=== PATIENT | male | born 1975 | race Caucasian/White ===

== ENCOUNTER 2019-09-30 17:37 | Emergency (ER) | payer SELFPAY ==
[2019-09-30 17:42] VITALS: BP 155/89; PULSE 110; RESP 16; TEMP 36.3; O2SAT 97; BMI 27.0
--- NOTE | 2019-09-30 17:48 | ED_ITS ---
HPI - Extremity Injury (Upper) General: Chief Complaint: Extremity Injury, Lower Stated Complaint: right hand injury Time Seen by Provider: 09/30/19 17:40 Source: patient Mode of arrival: ambulatory Limitations: no limitations History of Present Illness: HPI narrative: Patient is a 44-year-old male presents to ED today wanting evaluation following a crush injury to his right in dex finger. Patient states just prior to arrival he accidentally closed his finger in a car door. Patient states his last tetanus was approximately 12 years ago. complaint: injury to: right and finger Other Extremity Injury: Right: fingers Other injuries: none Place: home Severity: moderate Relieving factors: none Context: crush Associated symptoms: Reports no associated symptoms Review of Systems Musc: Reports: extremity pain (R finger) Skin/Breast: Reports: other (laceration) Neuro: Denies: numbness in extremities or sensory changes PFSH ED PFSH: Social History Smoking and tobacco status: current every day smoker Physical Exam Const: COMMON NORMALS: average body habitus, patient oriented x3, no limitations, healthy appearing, alert and well nourished GENERAL APPEARANCE: in distress (mild-in pain) Extremity: OTHER: pt has small 1cm non-gapping laceration to palmar pad of R index finger; bleeding controlled; pt states he does not want this sutured; no nail damage/no subungual hematoma; no significant swelling noted Neuro: COMMON NORMALS: patient oriented x3 SENSORIUM/ORIENTATION: Yes alert Skin: OTHER: see extremity assessement Course Vital Signs: Vital signs: Vital Signs Temperature 97.3 F L 09/30/19 17:42 Pulse Rate 110 H 09/30/19 17:42 Respiratory Rate 16 09/30/19 17:42 Blood Pressure 155/89 09/30/19 17:42 Pulse Oximetry 97 09/30/19 17:42 MDM - Extremity Injury (Upper) MDM Narrative: Medical decision making narrative: pts tetanus updated; wound copiously irrigated and dressed; again patient does not want laceration repaired-it is non-gapping and ultimately should heal fine; spoke about wound care at home and signs of infection to prompt repeat medical attention Imaging Data^: R index finger XR: My impression: no fractures/dislocations/fbs noted Discharge Plan Discharge Patient Disposition: Home, Self-Care Clinical Impression: Crushing injury of right index finger Qualifiers: Encounter type: initial encounter Qualified Code(s): S67.190A - Crushing injury of right index finger, initial encounter Laceration of right index finger Qualifiers: Encounter type: initial encounter Damage to nail status: without damage Foreign body presence: without foreign body Qualified Code(s): S61.210A - Laceration without foreign body of right index finger without damage to nail, initial encounter Condition: Stable Discharge Orders: Discharge Order (Routine); Ordered 09/30/19 Ordered By: Valorie Shepard Referrals: Israel Walsh MD [Primary Care Provider] - Discharge Diet: Usual diet Discharge Activity: Increase activity as tolerated Patient Instructions: Crush Injury, Finger Laceration (ED) Activity Restrictions/Additional Instructions: Keep wound clean with warm soap and water several times daily. Elevate and ice to help with swelling. May use tylenol/ibuprofen as needed for pain. Monitor for signs of infection such as redness, swelling, drainage, increased pain. Coding Level of Care Code ED Machine Operator Assistant for Hardeep Dejesus Exam Problem Focused
--- NOTE | 2019-09-30 17:48 | XRR_ITS ---
PROCEDURE INFORMATION: Exam: XR Right Finger(s) Exam date and time: 09/30/2019 5:54 PM Age: 44 years old Clinical indication: Injury or trauma; Injury history: Smashed finger in car door; Initial encounter; Crushing; Right; Index finger; Additional info: Trauma; Index finger. TECHNIQUE: Imaging protocol: XR Right fingers. Views: Minimum 2 views. COMPARISON: No relevant prior studies available. FINDINGS: Bones/joints: There is no acute fracture or dislocation. If symptoms persist, follow-up imaging in several days may be useful to exclude an occult fracture. No other significant acute bone or joint abnormality. Old/healed fracture/deformity of the right 4th metacarpal. Soft tissues: Mild soft tissue swelling involving the tip of the distal phalanx of the right index finger. XR/XR finger RT min 2V [id number] IMPRESSION: 1. No acute fracture or dislocation. 2. Other findings discussed above.
[2019-09-30] MEDS: tetanus-diphtheria tox (adult) 0.5 mL SDV IM (18:25)
== END 2019-09-30 18:30 | disposition home or self-care (01) ==
PROVIDERS: Emergency Provider Physician Assistant; PCP Family Medicine
DX: S67.190A Crushing injury of right index finger, initial encounter (principal); S61.210A Laceration without foreign body of right index finger without damage to nail, initial encounter; W23.0XXA Caught, crushed, jammed, or pinched between moving objects, initial encounter; F17.210 Nicotine dependence, cigarettes, uncomplicated; Z23 Encounter for immunization
CPT/HCPCS: 12345; 73140; 90471; 90714; 99281; 99283

== ENCOUNTER 2019-10-10 10:05 | Emergency (ER) | payer SELFPAY ==
[2019-10-10 10:13] VITALS: BP 136/99; PULSE 88; RESP 16; TEMP 36.8; O2SAT 98; BMI 26.4
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
[2019-10-10 10:28] VITALS: BP 136/99; PULSE 70; RESP 14; O2SAT 97
[2019-10-10] MEDS: HYDROcodone-acetaminophen 7.5-325 mg Tablet 1 TAB PO (10:33)
--- NOTE | 2019-10-11 15:37 | DCPLANNER ---
it application development manager had message to schedule a follow up appointment for patient with ENT, Dr. Vaughn. it application development manager faxed patients information to the ENT clinic, will call for appointment information.
--- NOTE | 2019-10-18 10:10 | DCPLANNER ---
Barbara from Dr. Singleton office called case management social worker, informing case management social worker that a follow up appointment was scheduled for Wednesday, November 10, 2019 at 3:45 and clinic called patient with appointment information.
--- NOTE | 2019-11-15 15:17 | DCPLANNER ---
Patients appointment scheduled for 11.10.[address] Vaughn was cancelled.
== END 2019-10-10 10:43 | disposition home or self-care (01) ==
PROVIDERS: Emergency Provider Physician Assistant; PCP Family Medicine
DX: K14.9 Disease of tongue, unspecified (principal); K14.6 Glossodynia; F17.210 Nicotine dependence, cigarettes, uncomplicated
CPT/HCPCS: 12345; 99281; 99283

== ENCOUNTER 2020-03-13 21:02 | Emergency (ER) | payer SELFPAY ==
[2020-03-13 21:05] VITALS: BP 135/98; PULSE 91; RESP 18; TEMP 36.7; O2SAT 98; BMI 26.4
--- NOTE | 2020-03-13 21:13 | XR_ITS ---
WS: [id number] Exam: XR tibia fibula LT 2V [id number] Date/Time of Exam: 03/13/2020 9:19 PM Reason For Exam: trauma No fracture or dislocation. Soft tissues are unremarkable. Mild degenerative changes at the knee. XR/XR tibia fibula LT 2V [id number] IMPRESSION: 1. No acute fracture identified.
--- NOTE | 2020-03-13 21:15 | W.ED.WOUNDLC ---
HPI - Wound/Laceration General: Chief Complaint: Wound/Laceration Stated Complaint: left leg injury Time Seen by Provider: 03/13/20 21:12 History of Present Illness: HPI narrative: Patient bumped his shins a concrete block 2 nights ago. Now it is red and swollen very tender has had hurt since the accident that is not up-to-date. Extremity Location: Left: lower leg Place: home Patient tetanus UTD: No Context: accidental Associated symptoms: Reports no associated symptoms; Denies chills, fever(s), nausea or vomiting Review of Systems Const: Denies: fever(s), chills or body aches Eyes: Denies: change in vision or blurry vision ENMT: Denies: throat pain or nasal congestion Card: Denies: chest pain or dyspnea on exertion Resp: Denies: dyspnea, productive cough or non-productive cough GI: Denies: abdominal pain, nausea or vomiting : Denies: difficulty urinating Musc: Reports: extremity pain (Erythema and drainage to the left hester is tender said started getting worse today.) Skin/Breast: Denies: rash Neuro: Denies: headache(s) Psych: Denies: anxiety or depression Paul/Lymph: Denies: easy bruising PFSH ED PFSH: Social History Smoking and tobacco status: current every day smoker Physical Exam Const: COMMON NORMALS: no acute distress, average body habitus and patient oriented x3 HENMT: COMMON NORMALS: normocephalic HEAD & SCALP: normal to inspection and normocephalic FACE & SINUS: normal facial exam Eye: COMMON NORMALS: conjunctivae normal GENERAL EYE: appearance normal, both eyes and all related structures CONJUNCTIVA: Yes conjunctivae normal Neck/C-Spine: COMMON NORMALS: no JVD Chest: COMMONS NORMALS: normal inspection of the chest Resp: COMMON NORMALS: normal respiratory effort and clear to auscultation bilaterally AUSCULTATION: clear to auscultation bilaterally Cardio: COMMON NORMALS: no JVD, regular rate and regular rhythm RATE: regular rate RHYTHM: regular rhythm GI: COMMON NORMALS: Normal to inspection, nondistended, normoactive bowel sounds present Extremity: COMMON NORMALS: normal to inspection and full ROM Neuro: COMMON NORMALS: patient oriented x3 Skin: NARRATIVE SKIN EXAM: Patient has couple open sores left hester where he bumped and concrete blockage red with erythema extending out inferior and superior the wound is approximately 2 inches slight yellowish drainage tibia tender to touch mid hester. Neurovascular intact distally. Course Vital Signs: Vital signs: Vital Signs Temperature 98.1 F 03/13/20 21:05 Pulse Rate 88 03/13/20 22:08 Respiratory Rate 18 03/13/20 22:08 Blood Pressure 130/98 03/13/20 22:08 Pulse Oximetry 98 03/13/20 22:08 Discharge Plan Discharge Patient Disposition: Home Clinical Impression: Cellulitis Qualifiers: Site of cellulitis: extremity Site of cellulitis of extremity: lower extremity Laterality: left Qualified Code(s): L03.116 - Cellulitis of left lower limb Condition: Stable Prescriptions: New Bactrim DS 800-160 mg tablet 1 tab PO BID 7 Days Qty: 14 RF: 0 tramadol 50 mg tablet 50 mg PO TID PRN (Reason: pain) Qty: 10 RF: 0 No Action aspirin 325 mg Tablet 325 - 650 mg PO PRN PRN (Reason: Pain) RF: 0 Discharge Orders: Discharge Order (Routine); Ordered 03/13/20 Ordered By: Aj Casey Referrals: Israel Walsh MD [Primary Care Provider] - Discharge Diet: Usual diet Discharge Activity: Increase activity as tolerated Patient Instructions: Cellulitis (ED) Activity Restrictions/Additional Instructions: Follow-up with medical provider as directed. Take medications as prescribed. Return to the ER or your medical provider if condition worsens. Please read and understand discharge instructions. If any questions ask please. Discharge Date/Time: 03/13/20 22:13 Coding Level of Care Code ED Medical Massage Therapist for Chg Fwd Exam Comprehensive
[2020-03-13] MEDS: tetanus-dipt-pertussis 0.5 mL SDV IM (21:20)
[2020-03-13] MEDS: TRAMadol 50 mg Tablet PO (21:25)
[2020-03-13] MEDS: sulfamethoxazole-trimeth DS 160-800 mg Tablet 1 TAB PO (21:25)
[2020-03-13 22:08] VITALS: BP 130/98; PULSE 88; RESP 18; O2SAT 98
--- NOTE | 2020-03-13 22:12 | PC.NURSE ---
This RN agrees with director financial services assessment
== END 2020-03-13 22:13 | disposition home or self-care (01) ==
PROVIDERS: Emergency Provider Nurse Practitioner Family; PCP Family Medicine
DX: L03.116 Cellulitis of left lower limb (principal); F17.210 Nicotine dependence, cigarettes, uncomplicated; Z23 Encounter for immunization
CPT/HCPCS: 12345; 73590; 90471; 90715; 99281; 99283

== ENCOUNTER 2020-05-03 20:37 | Emergency (ER) | payer SELFPAY ==
[2020-05-03] VITALS (8 sets, daily range): BP systolic 112–155; BP diastolic 71–89; PULSE 69–106; RESP 12–24; TEMP 36.7; O2SAT 93–98; BMI 27.0
--- NOTE | 2020-05-03 20:55 | USCV_ITS ---
Nicki Jiménez Age: 45 Gender: M : 1975 Exam Date: 05/03/2020 21:50 Ordering Phys: Erin Salinas DO Technologist: Antonio Ma [place] [facility] [place]: ? VEG BP: 128 / 72 HR: 78 Rhythm: Sinus Technical Quality: Good MEASUREMENTS (Male / Female) Normal Values 2D ECHO LV Diastolic Diameter PLAX 4.2 cm 4.2 - 5.9 / 3.9 - 5.3 cm LV Systolic Diameter PLAX 2.1 cm IVS Diastolic Thickness 0.8 cm 0.6 - 1.0 / 0.6 - 0.9 cm IVS Systolic Thickness 1.2 cm LVPW Diastolic Thickness 1.1 cm 0.6 - 1.0 / 0.6 - 0.9 cm LVPW Systolic Thickness 1.4 cm LVOT Diameter 2.1 cm LV Ejection Fraction 2D Teich 80.2 % LV Ejection Fraction MOD 2C 73.7 % LV Ejection Fraction 2C AL 73.2 % LA Diameter 3.2 cm LA Width 3.5 cm LA Height 5.0 cm RA Width 4.1 cm RA Height 4.7 cm Aorta at Sinotubular Diameter 2.9 cm M-MODE LV Diastolic Diameter MM 5.2 cm 4.2 - 5.9 / 3.9 - 5.3 cm LV Systolic Diameter MM 2.9 cm LV Ejection Fraction MM Teich 74.8 % IVS Diastolic Thickness MM 1.2 cm 0.6 - 1.0 / 0.6 - 0.9 cm IVS Systolic Thickness MM 1.3 cm LVPW Diastolic Thickness MM 1.2 cm 0.6 - 1.0 / 0.6 - 0.9 cm LVPW Systolic Thickness MM 1.8 cm RV Diastolic Diameter MM 1.3 cm Aortic Annulus Diameter 3.6 cm LA Ao Ratio MM 1.0 MV E Point Septal Separation 1.0 cm DOPPLER AV Peak Velocity 143.0 cm/s LVOT Peak Velocity 108.0 cm/s AV Area Cont Eq vti 2.7 cm squared AV Area Cont Eq pk 2.6 cm squared MV Area PHT 3.5 cm squared Mitral E to A Ratio 0.9 MV E' Velocity 39.0 cm/s Mitral E to MV E' Ratio 5.1 Mitral E to LV E' Lateral Ratio 4.9 Mitral E to LV E' Septal Ratio 5.4 TR Peak Velocity 263.0 cm/s TR Peak Gradient 27.7 mmHg TV Peak E Velocity 104.0 cm/s Right Atrial Pressure 3.0 mmHg Pulmonary Artery Systolic Pressu 30.7 mmHg PV Peak Velocity 121.0 cm/s FINDINGS Left Ventricle Normal left ventricular size, systolic function and wall thickness, with no regional wall motion abnormalities. Left ventricular ejection fraction is estimated at 65 %. Normal diastolic function. Right Ventricle Normal right ventricular size and systolic function. Right ventricular systolic pressure 30.7 mmHg. Right Atrium Normal right atrial size. Right atrial pressure estimated at 3 mm Hg. Left Atrium Normal left atrial size. Mitral Valve Structurally normal mitral valve. No mitral valve stenosis. Trace mitral valve regurgitation. Aortic Valve Structurally normal trileaflet aortic valve. No aortic valve stenosis. No aortic valve regurgitation. Tricuspid Valve Structurally normal tricuspid valve. No tricuspid valve stenosis. Trace tricuspid valve regurgitation. Pulmonic Valve Structurally normal pulmonic valve. No pulmonary valve stenosis. Trace pulmonary valve regurgitation. Pericardium No pericardial effusion. Normal sized inferior vena cava. Aorta Normal size aortic root and proximal ascending aorta. CONCLUSIONS 1. Normal left ventricular size, systolic function and wall thickness, with no regional wall motion abnormalities. Left ventricular ejection fraction is estimated at 65 %. Normal diastolic function. 2. Normal right ventricular size and systolic function. 3. No significant valvular abnormality. 4. No pericardial effusion. 5 No prior similar studies to compare. Anne Marie Gr MD (Electronically Signed) Final Date: 03 May 2020 22:45 S
--- NOTE | 2020-05-03 20:55 | XRR_ITS ---
PROCEDURE INFORMATION: Exam: XR Chest, 1 View Exam date and time: 05/03/2020 8:59 PM Age: 45 years old Clinical indication: Chest pain TECHNIQUE: Imaging protocol: XR of the chest Views: 1 view. COMPARISON: CR Chest 1 [place] [id number] 01/11/2015 3:28 PM FINDINGS: The lungs are clear of infiltrate. There are no pleural effusions or pneumothorax. The heart size and pulmonary vascularity are normal. XR/XR chest 1V portable [id number] IMPRESSION: No active disease.
--- NOTE | 2020-05-03 20:57 | ECG_ITS ---
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 Measurements Intervals [place] Rate: 89 P: 55 CT: 116 QRS: 68 QRSD: 90 T: 73 QT: 344 QTc: 420 Interpretive Statements SINUS RHYTHM WITH SHORT CT INTERVAL Compared to ECG 01/11/2015 15:06:[address] interval now present Electronically Signed On 05-04-2020 8:38:18 AGRICULTURAL ECONOMIST by Anne Marie Gr M.D. [email or web address] [email or web address] hospital.[email or web address]/[id number] f
--- NOTE | 2020-05-03 21:00 | PC.NURSE ---
Dr Salinas in to speak with pt withthis nurse present. Educated pt on plan of care and testing needed. Dr Salinas wanting to test pt for HIV and Hepatitis. Pt verbalizes understanding an agreeable
--- NOTE | 2020-05-03 21:10 | W.ED.CHESTPA ---
HPI - Chest Pain General: Chief Complaint: Chest Pain Stated Complaint: chest pains Time Seen by Provider: 05/03/20 20:49 Source: patient Mode of arrival: ambulatory Limitations: no limitations History of Present Illness: HPI narrative: Nicki is a very nice 45-year-old male who comes in complaining of chest discomfort. Patient states for the past year he has had intermittent discomfort in both of his axilla. For the past 2 to 3 days the pain has been more intense. Patient states today started having sharp shooting pain in the left side of his chest. He denies cough, fever, shortness of breath, diaphoresis, nausea or vomiting or other cardiac type complaint. Patient states he just aches and hurts all over. He denies any fevers or chills. He denies any unexplained weight loss. He denies any neck pain or back pain. Patient states that he has had similar symptoms for the past year things only become more intense just recently. Patient does admit to IV drug abuse which is been a long-term issue. Denies any knots or swellings in his arms. Patient admits to drinking, smoking using methamphetamines and opiates. He is not tried anything for this at home to make it better just notices that the pain is much more prominent today than normal. Associated symptoms: Deny abdominal pain, diaphoresis, dyspnea, fever(s), nausea, palpitations, syncope or vomiting Review of Systems Const: Denies: fever(s), chills, body aches, fatigue, malaise or diaphoresis Eyes: Denies: change in vision, blurry vision, photophobia, eye discomfort, eye discharge, eye redness or yellow eyes ENMT: Denies: throat pain, odynophagia, hoarseness, swelling of lips/tongue, ear or mastoid pain, ear discharge, change in hearing or nasal discharge Card: Reports: chest pain; Denies: palpitations, irregular heart rhythm, edema, lightheadedness, syncope, pre-syncope, dyspnea on exertion or orthopnea Resp: Denies: dyspnea, productive cough, non-productive cough, wheezing, hemoptysis or chest congestion GI: Denies: abdominal pain, nausea, vomiting, hematemesis, coffee ground emesis, heartburn, diarrhea, constipation, GI cramping, hematochezia or melena : Denies: flank pain, dysuria, urinary frequency, urinary urgency or hematuria Musc: Denies: neck pain, back pain, extremity pain, extremity swelling, joint pain, joint swelling, joint redness, joint warmth or joint stiffness Skin/Breast: Denies: rash, pruritus, erythema, skin pain or skin tenderness Neuro: Denies: headache(s), numbness in extremities, weakness in extremities, sensory changes, lack of coordination, difficulty walking, dizziness, vertigo, confusion, Slurred speech present or seizure-like activity Paul/Lymph: Denies: easy bruising, easy bleeding, petechiae, purpura or enlarged lymph nodes All/Imm: Denies: urticaria, throat swelling, tongue swelling, facial swelling or acute wheezing PFSH ED PFSH: Medical History (Updated 05/04/20 @ 05:20 by Erin Salians) Depression Social History Smoking and tobacco status: current every day smoker Physical Exam Const: COMMON NORMALS: no acute distress, patient oriented x3, no limitations and alert GENERAL APPEARANCE: cooperative HENMT: COMMON NORMALS: normocephalic, atraumatic, external ears normal, EAC's normal and Normal external nose present HEAD & SCALP: normal to inspection, normocephalic and atraumatic FACE & SINUS: normal facial exam and face symmetric NOSE: Normal external nose present and Normal nares present EXTERNAL EAR: Yes external ears normal EXTERNAL AUDITORY CANAL: EAC's normal MOUTH: Normal oral and palatal mucosa present, lip normal and tongue normal Eye: COMMON NORMALS: Equal, round and reactive pupils present and conjunctivae normal GENERAL EYE: appearance normal, both eyes and all related structures ALIGNMENT: Yes alignment normal PERIORBITAL: periorbital findings normal EYELID: eyelids normal CONJUNCTIVA: Yes conjunctivae normal SCLERA: sclerae normal PUPIL: Yes Equal, round and reactive pupils present Neck/C-Spine: COMMON NORMALS: full ROM, no lymphadenopathy, supple, no meningeal signs and no JVD GENERAL: Yes normal visual inspection and Yes trachea midline Chest: COMMONS NORMALS: normal inspection of the chest and normal palpation of entire chest wall Resp: COMMON NORMALS: normal respiratory effort, No retractions, No use of accessory muscles and clear to auscultation bilaterally EFFORT & INSPECTION: Yes able to speak in complete sentences and Yes symmetric chest movement AUSCULTATION: clear to auscultation bilaterally, no crackles, no rales, no rhonchi and no wheezes Cardio: COMMON NORMALS: no JVD, regular rate, regular rhythm, S1 normal heart sound present and S2 normal heart sound present RATE: regular rate RHYTHM: regular rhythm HEART SOUNDS: S1 normal heart sound present, S2 normal heart sound present, no click, no gallops, no murmurs and no rubs GI: COMMON NORMALS: Soft to palpation and No hepatosplenomegaly present PALPATION: Yes Soft to palpation, No Tenderness to palpation present (GI), No Guarding due to palpation present (GI), No Rigid due to palpation, Yes No hepatosplenomegaly present, No Hernia present, No Palpable mass present and No Pulsatile mass present : COMMON NORMALS: Yes no CVA tenderness BLADDER/KIDNEY EXAM: Yes no CVA tenderness Back/Pelvis: COMMON NORMALS: no CVA tenderness, thoracic and lumbar spine normal to inspection, no thoracic nor lumbar tenderness and thoraco-lumbar ROM normal Extremity: COMMON NORMALS: normal to inspection, full ROM, capillary refill normal, no joint enlargement, no clubbing, cyanosis or edema and no calf tenderness Neuro: COMMON NORMALS: patient oriented x3, CN's II-XII intact bilaterally, moves all extremities, no focal motor deficits and no sensory deficits noted SENSORIUM/ORIENTATION: Yes alert MENINGEAL SIGNS: Yes no meningeal signs SPEECH: speech normal Psych: COMMON NORMALS: mental status grossly normal, Normal thought process present, cooperative, normal affect, speech normal and activity/motor behavior normal SPEECH: Yes normal speech THOUGHT PROCESS: Normal thought process present Skin: COMMON NORMALS: no rashes or lesions noted, turgor normal, no jaundice, no petechiae and no mottling GENERAL SKIN EXAM: no rashes or lesions noted and turgor normal Course ED course: 2123 -patient was asked in the presence of nursing if get tested for HIV and hepatitis and he did consent. Vital Signs: Vital signs: Vital Signs Temperature 98.1 F 05/03/20 20:39 Pulse Rate 74 05/04/20 03:40 Respiratory Rate 18 05/04/20 03:40 Blood Pressure 115/84 05/04/20 03:40 Pulse Oximetry 95 05/04/20 03:40 MDM - Chest Pain MDM Narrative: Medical decision making narrative: 0216 -after multiple phone calls to other institutions the closest available facility that would accept the patient was [facility]. Case was reviewed with Dr. Hartley and Dr. Bradshaw who agreed to accept the patient in transfer. Patient has been covered with Protonix bolus and drip along with antibiotics. The concern is for the possible esophageal tear seen on CT. This time there is no evidence of other cause other than a mild nodular pneumonia in his right lung but clinically this does not fit. Echo was negative for evidence of endocarditis and there is no sign of PE. Patient agrees to transfer. Further care will be dictated at the [facility]. We will transfer the patient there by the fastest means possible. 0251 -patient will be transferred by ground as there are no air ambulance services flying by ground or fixed wing. Transfer him by ground life threat to [facility] this is the closest available facility. Lab Data: Attestation: I reviewed the patient's lab results. Labs: Lab Results 05/03/20 05/03/20 05/03/20 Range/Units 21:07 21:07 21:07 WBC 21.1 H (4.0-10.0) 10^3/ uL RBC 5.08 (4.1-5.3) 10^6/u L Hgb 14.9 (11.7-16.6) g/dL Hct 44.5 (42.0-52.0) % MCV 87.6 (80-94) fL MCH 29.3 (28.0-34.0) pg MCHC 33.5 (30.0-36.0) g/dL RDW 12.7 (12.1-15.1) % Plt Count 259 (130-400) 10^3/c mm MPV 9.8 (7.4-10.4) fL Neut % (Auto) 67.3 % Lymph % (Auto) 22.5 % [place] % (Auto) 8.8 % Eos % (Auto) 0.7 % Baso % (Auto) 0.3 % Neut # (Auto) 14.20 H (1.8-7.7) 10^3/u L Lymph # (Auto) 4.7 (0.8-4.8) 10^3/u L [place] # (Auto) 1.9 H (0.2-0.9) 10^3/u L Eos # (Auto) 0.1 (0.0-0.8) 10^3/u L Baso # (Auto) 0.1 (0.0-0.1) 10^3/u L Nucleated RBC % (a uto) 0 % Nucleated RBCs # 0.0 /100WBC D-Dimer 1.02 H (0-0.59) ug/mIFE U Sodium 137 (136-145) mmol/L Potassium 3.6 (3.5-5.1) mmol/L Chloride 102 (98-107) mmol/L Carbon Dioxide 25 (22-29) mmol/L Anion Gap 13.6 (5-19) BUN 12 (6-20) mg/dL Creatinine 0.8 (0.7-1.2) mg/dL GFR Calculation 104.1 (90-130) mL/min Glucose 135 H (65-115) mg/dL Calculated Osmolal ity 286 (285-295) mOsm/k g Lactic Acid (0.5-2.2) mmol/L Calcium 9.5 (8.5-10.5) mg/dL Magnesium 1.9 (1.7-2.3) mg/dL Total Bilirubin 0.5 (0.15-1.2) mg/dL AST 20 (0-40) U/L ALT 38 (0-41) U/L Alkaline Phosphata se 117 (40-130) IU/L Troponin T Baselin e (0-15) ng/L Troponin T 120 Min lumbee (0-15) ng/L Delta Troponin T (0-10) ABS# Total Protein 6.7 (6.6-8.7) g/dL Albumin 4.0 (3.5-5.2) g/dL Globulin 2.7 (1.3-4.6) g/dL Urine Color (Yellow) Urine Appearance (CLEAR) Urine pH (5-7) Ur Specific Gravit y (1.005-1.030) Urine Protein (Negative) Urine Glucose (UA) (Normal) Urine Ketones (Negative) Urine Blood (Negative) Urine Nitrate (Negative) Urine Bilirubin (Negative) Urine Urobilinogen (Negative) mg/dL Ur Leukocyte Carrie ase (Negative) Urine RBC (0-2) /hpf Urine WBC (0-5) /hpf Ur Squamous Epith Cells (0-5) /hpf Amorphous Sediment Urine Bacteria (NONE) /hpf Hepatitis A IgM Ab (Nonreactive) Hep Bs Antigen (Nonreactive) Hep Bs Antibody (0-8.5) Hep B Core Total A b (Nonreactive) Hepatitis C Antibo dy (Nonreactive) HIV 1&2 Ab & HIV 1 Ag (Non-Reactiv) HIV 1&2 Antibody (Non-Reactiv) SARS-CoV-2 Ag (Rap id) (Negative) 05/03/20 05/03/20 05/03/20 Range/Units 21:07 21:07 21:07 WBC (4.0-10.0) 10^3/ uL RBC (4.1-5.3) 10^6/u L Hgb (11.7-16.6) g/dL Hct (42.0-52.0) % MCV (80-94) fL MCH (28.0-34.0) pg MCHC (30.0-36.0) g/dL RDW (12.1-15.1) % Plt Count (130-400) 10^3/c mm MPV (7.4-10.4) fL Neut % (Auto) % Lymph % (Auto) % [place] % (Auto) % Eos % (Auto) % Baso % (Auto) % Neut # (Auto) (1.8-7.7) 10^3/u L Lymph # (Auto) (0.8-4.8) 10^3/u L [place] # (Auto) (0.2-0.9) 10^3/u L Eos # (Auto) (0.0-0.8) 10^3/u L Baso # (Auto) (0.0-0.1) 10^3/u L Nucleated RBC % (a uto) % Nucleated RBCs # /100WBC D-Dimer (0-0.59) ug/mIFE U Sodium (136-145) mmol/L Potassium (3.5-5.1) mmol/L Chloride (98-107) mmol/L Carbon Dioxide (22-29) mmol/L Anion Gap (5-19) BUN (6-20) mg/dL Creatinine (0.7-1.2) mg/dL GFR Calculation (90-130) mL/min Glucose (65-115) mg/dL Calculated Osmolal ity (285-295) mOsm/k g Lactic Acid 1.3 (0.5-2.2) mmol/L Calcium (8.5-10.5) mg/dL Magnesium (1.7-2.3) mg/dL Total Bilirubin (0.15-1.2) mg/dL AST (0-40) U/L ALT (0-41) U/L Alkaline Phosphata se (40-130) IU/L Troponin T Baselin e 6 (0-15) ng/L Troponin T 120 Min lumbee (0-15) ng/L Delta Troponin T (0-10) ABS# Total Protein (6.6-8.7) g/dL Albumin (3.5-5.2) g/dL Globulin (1.3-4.6) g/dL Urine Color (Yellow) Urine Appearance (CLEAR) Urine pH (5-7) Ur Specific Gravit y (1.005-1.030) Urine Protein (Negative) Urine Glucose (UA) (Normal) Urine Ketones (Negative) Urine Blood (Negative) Urine Nitrate (Negative) Urine Bilirubin (Negative) Urine Urobilinogen (Negative) mg/dL Ur Leukocyte Carrie ase (Negative) Urine RBC (0-2) /hpf Urine WBC (0-5) /hpf Ur Squamous Epith Cells (0-5) /hpf Amorphous Sediment Urine Bacteria (NONE) /hpf Hepatitis A IgM Ab Non-reactive (Nonreactive) Hep Bs Antigen Non-reactive (Nonreactive) Hep Bs Antibody 3.8 (0-8.5) Hep B Core Total A b Non-reactive (Nonreactive) Hepatitis C Antibo dy Reactive H (Nonreactive) HIV 1&2 Ab & HIV 1 Ag (Non-Reactiv) HIV 1&2 Antibody (Non-Reactiv) SARS-CoV-2 Ag (Rap id) (Negative) 05/03/20 05/03/20 05/03/20 Range/Units 21:07 22:50 23:30 WBC (4.0-10.0) 10^3/ uL RBC (4.1-5.3) 10^6/u L Hgb (11.7-16.6) g/dL Hct (42.0-52.0) % MCV (80-94) fL MCH (28.0-34.0) pg MCHC (30.0-36.0) g/dL RDW (12.1-15.1) % Plt Count (130-400) 10^3/c mm MPV (7.4-10.4) fL Neut % (Auto) % Lymph % (Auto) % [place] % (Auto) % Eos % (Auto) % Baso % (Auto) % Neut # (Auto) (1.8-7.7) 10^3/u L Lymph # (Auto) (0.8-4.8) 10^3/u L [place] # (Auto) (0.2-0.9) 10^3/u L Eos # (Auto) (0.0-0.8) 10^3/u L Baso # (Auto) (0.0-0.1) 10^3/u L Nucleated RBC % (a uto) % Nucleated RBCs # /100WBC D-Dimer (0-0.59) ug/mIFE U Sodium (136-145) mmol/L Potassium (3.5-5.1) mmol/L Chloride (98-107) mmol/L Carbon Dioxide (22-29) mmol/L Anion Gap (5-19) BUN (6-20) mg/dL Creatinine (0.7-1.2) mg/dL GFR Calculation (90-130) mL/min Glucose (65-115) mg/dL Calculated Osmolal ity (285-295) mOsm/k g Lactic Acid (0.5-2.2) mmol/L Calcium (8.5-10.5) mg/dL Magnesium (1.7-2.3) mg/dL Total Bilirubin (0.15-1.2) mg/dL AST (0-40) U/L ALT (0-41) U/L Alkaline Phosphata se (40-130) IU/L Troponin T Baselin e (0-15) ng/L Troponin T 120 Min lumbee 6.00 (0-15) ng/L Delta Troponin T 0 (0-10) ABS# Total Protein (6.6-8.7) g/dL Albumin (3.5-5.2) g/dL Globulin (1.3-4.6) g/dL Urine Color Yellow (Yellow) Urine Appearance Clear (CLEAR) Urine pH 6.5 (5-7) Ur Specific Gravit y 1.010 (1.005-1.030) Urine Protein Trace (Negative) Urine Glucose (UA) Norm (Normal) Urine Ketones Negative (Negative) Urine Blood Neg (Negative) Urine Nitrate Negative (Negative) Urine Bilirubin Neg (Negative) Urine Urobilinogen Norm (Negative) mg/dL Ur Leukocyte Carrie ase Negative (Negative) Urine RBC 0-4 H (0-2) /hpf Urine WBC 0-4 H (0-5) /hpf Ur Squamous Epith Cells 0-4 H (0-5) /hpf Amorphous Sediment Not Reportable Urine Bacteria Trace (NONE) /hpf Hepatitis A IgM Ab (Nonreactive) Hep Bs Antigen (Nonreactive) Hep Bs Antibody (0-8.5) Hep B Core Total A b (Nonreactive) Hepatitis C Antibo dy (Nonreactive) HIV 1&2 Ab & HIV 1 Ag Non-reactive (Non-Reactiv) HIV 1&2 Antibody Non-reactive (Non-Reactiv) SARS-CoV-2 Ag (Rap id) (Negative) 05/04/20 Range/Units 01:36 WBC (4.0-10.0) 10^3/ uL RBC (4.1-5.3) 10^6/u L Hgb (11.7-16.6) g/dL Hct (42.0-52.0) % MCV (80-94) fL MCH (28.0-34.0) pg MCHC (30.0-36.0) g/dL RDW (12.1-15.1) % Plt Count (130-400) 10^3/c mm MPV (7.4-10.4) fL Neut % (Auto) % Lymph % (Auto) % [place] % (Auto) % Eos % (Auto) % Baso % (Auto) % Neut # (Auto) (1.8-7.7) 10^3/u L Lymph # (Auto) (0.8-4.8) 10^3/u L [place] # (Auto) (0.2-0.9) 10^3/u L Eos # (Auto) (0.0-0.8) 10^3/u L Baso # (Auto) (0.0-0.1) 10^3/u L Nucleated RBC % (a uto) % Nucleated RBCs # /100WBC D-Dimer (0-0.59) ug/mIFE U Sodium (136-145) mmol/L Potassium (3.5-5.1) mmol/L Chloride (98-107) mmol/L Carbon Dioxide (22-29) mmol/L Anion Gap (5-19) BUN (6-20) mg/dL Creatinine (0.7-1.2) mg/dL GFR Calculation (90-130) mL/min Glucose (65-115) mg/dL Calculated Osmolal ity (285-295) mOsm/k g Lactic Acid (0.5-2.2) mmol/L Calcium (8.5-10.5) mg/dL Magnesium (1.7-2.3) mg/dL Total Bilirubin (0.15-1.2) mg/dL AST (0-40) U/L ALT (0-41) U/L Alkaline Phosphata se (40-130) IU/L Troponin T Baselin e (0-15) ng/L Troponin T 120 Min lumbee (0-15) ng/L Delta Troponin T (0-10) ABS# Total Protein (6.6-8.7) g/dL Albumin (3.5-5.2) g/dL Globulin (1.3-4.6) g/dL Urine Color (Yellow) Urine Appearance (CLEAR) Urine pH (5-7) Ur Specific Gravit y (1.005-1.030) Urine Protein (Negative) Urine Glucose (UA) (Normal) Urine Ketones (Negative) Urine Blood (Negative) Urine Nitrate (Negative) Urine Bilirubin (Negative) Urine Urobilinogen (Negative) mg/dL Ur Leukocyte Carrie ase (Negative) Urine RBC (0-2) /hpf Urine WBC (0-5) /hpf Ur Squamous Epith Cells (0-5) /hpf Amorphous Sediment Urine Bacteria (NONE) /hpf Hepatitis A IgM Ab (Nonreactive) Hep Bs Antigen (Nonreactive) Hep Bs Antibody (0-8.5) Hep B Core Total A b (Nonreactive) Hepatitis C Antibo dy (Nonreactive) HIV 1&2 Ab & HIV 1 Ag (Non-Reactiv) HIV 1&2 Antibody (Non-Reactiv) SARS-CoV-2 Ag (Rap id) Negative (Negative) Imaging Data^: CXR: Attestation: I personally reviewed and interpreted this imaging study as follows: My impression: No acute cardiopulmonary findings. CTA Chest with ABD/Pelvis : Radiologist's impression: [employer] [address] [address] Scan Report Signed with Addenda Patient: Nicki Jiménez #: [id number] : 1975Acct#:[id number] Age/Sex: 45 / MADM Date: 05/03/20 Loc: ERRoom/Bed: Attending Dr: Ordering Provider/Ordering MD: Erin Salinas DO Date of Service: 05/03/20 Procedure(s): CT angio chest w abd pel w con Accession Number(s): [id number] Report Number: [id number]/CT angio chest w abd pel w con Addendum: Provider request to review for discitis/osteomyelitis in the setting of patient with drug abuse and atypical symptoms. No evidence for discitis/osteomyelitis. However, there is a small punctate focus of gas which appears separate from the esophageal lumen on coronal image series 602, image 30, and there is some minimal haziness of the fat around the distal esophagus raising a question of a small esophageal tear. Aforementioned discussed with DR. Salinas on 05/03/2020 at 11:40 p.m. Radiation Dose CTDIVOL = (mGy): DLP = 3372.87~3372.87 (mGy-cm) Addendum Dictated By: Jann Mas MD Addendum Signed By: Jann Mas MDSigned Date/Time:05/03/20 4327 Addendum Cosigned By: PROCEDURE INFORMATION: Exam: CT Angiography Chest With Contrast Exam date and time: 05/03/2020 9:40 PM Age: 45 years old Clinical indication: Other: Elevatedd wbc. ; Other: Hypertensive; Patient HX: Left sided chest pain with hypertension and positive ddimer. Elevated wbc. Angio phase repeated twice. Best exam submitted. TECHNIQUE: Imaging protocol: Computed tomographic angiography of the chest with intravenous contrast. 3D rendering (Not supervised by radiologist): MIP and/or 3D reconstructed images were created by the technologist. Radiation optimization: All CT scans at this facility use at least one of these dose optimization techniques: automated exposure control; mA and/or kV adjustment per patient size (includes targeted exams where dose is matched to clinical indication); or iterative reconstruction. Contrast material: OMNI 350; Contrast volume: 215 ml; Contrast route: INTRAVENOUS (IV); COMPARISON: CR XR chest 1V portable [id number] 05/03/2020 9:05 PM RADIATION DOSE METRICS: Total DLP (mGy-cm): 3372.87 FINDINGS: The visualized bony structures are unremarkable. Nodular infiltrate is seen within the right upper lobe. Findings may represent pneumonia. The remainder of the lungs are clear. There is no pleural effusion. There is no pneumothorax. There are no suspicious pulmonary nodules. The central airways are normal in caliber. The thyroid gland is unremarkable. There is no axillary adenopathy. Prominent mediastinal and right hilar lymph nodes are present which may be reactive. Interrogation of the pulmonary arteries in multiple planes shows no evidence for pulmonary embolism. The aorta is normal in caliber with no evidence for aneurysm or dissection. The heart is normal in size. There is no evidence for right heart failure. There is thickening of the wall of the distal esophagus which may be due to reflux or esophagitis. IMPRESSION: 1. No evidence for pulmonary embolism. 2. Nodular infiltrate within the right upper lobe likely representing pneumonia. The findings are nonspecific. 3. Prominent mediastinal and right hilar lymph nodes which may be reactive. 4. Thickening of the wall of the distal esophagus which may be due to reflux or esophagitis. PROCEDURE INFORMATION: Exam: CT Abdomen And Pelvis With Contrast Exam date and time: 05/03/2020 9:40 PM Age: 45 years old Clinical indication: Other: Elevatedd wbc. ; Other: Hypertensive; Patient HX: Left sided chest pain with hypertension and positive ddimer. Elevated wbc. Angio phase repeated twice. Best exam submitted. TECHNIQUE: Imaging protocol: Computed tomography of the abdomen and pelvis with intravenous contrast. Radiation optimization: All CT scans at this facility use at least one of these dose optimization techniques: automated exposure control; mA and/or kV adjustment per patient size (includes targeted exams where dose is matched to clinical indication); or iterative reconstruction. Contrast material: OMNI 350; Contrast volume: 215 ml; Contrast route: INTRAVENOUS (IV); COMPARISON: CR XR chest 1V portable [id number] 05/03/2020 9:05 PM RADIATION DOSE METRICS: Total DLP (mGy-cm): 3372.87 FINDINGS: The The visualized bony structures are unremarkable. There is no liver mass. There is no intrahepatic biliary dilatation. No gallstones are seen within the gallbladder. The pancreas is unremarkable. The spleen is unremarkable. There is no adrenal mass. There is no hydronephrosis. There are no renal calculi. There is no perinephric stranding. There is no renal mass. The aorta is normal in caliber. The IVC is normal in caliber. There is no retroperitoneal adenopathy. There is no mesenteric adenopathy. The stomach is unremarkable. There is some mild distal small bowel distention with fluid which may represent mild ileus. No transition zone is seen. There is no evidence for small bowel obstruction. The colonic structures within the upper abdomen are normal in caliber with no bowel wall thickening. Within the pelvis: A normal appendix is seen within the right lower quadrant. The bladder is unremarkable. The prostate gland and seminal vesicles are normal. There is no free fluid within the pelvis. There is no inguinal adenopathy. There is no pelvic adenopathy. The bowel loops within the pelvis are unremarkable. CT/CT angio chest w abd pel w con IMPRESSION: 1. Some mild distal small bowel distention with fluid which may represent mild ileus. No evidence for bowel obstruction. 2. Normal appendix. Radiation Dose CTDIVOL = (mGy): DLP = 3372.87~3372.87 (mGy-cm) Dictated By:Gilbert Lara MD Signed By:Gilbert Lara Date/Time:05/03/202251 DD/ 50 US Vascular: Radiologist's impression: [facility] [address] [place] [address] Ultrasound Report Signed Patient: Nicki Jiménez #: [id number] : 1975Acct#:[id number] Age/Sex: 45 / MADM Date: 05/03/20 Loc: ERRoom/Bed: Attending Dr: Ordering Provider/Ordering MD: Erin Salinas DO Date of Service: 05/03/20 Procedure(s): CV echo complete* 66221 Accession Number(s): [id number] Report Number: [id number] Nicki Jiménez Age: 45 Gender: M : 1975 Exam Date: 05/03/2020 21:50 Ordering Phys: Erin Salinas DO Technologist: Antonio Ma [place] [facility] [place]: ? VEG BP: 128 / 72 HR: 78 Rhythm: Sinus Technical Quality: Good MEASUREMENTS (Male / Female) Normal Values 2D ECHO LV Diastolic Diameter PLAX 4.2 cm 4.2 - 5.9 / 3.9 - 5.3 cm LV Systolic Diameter PLAX 2.1 cm IVS Diastolic Thickness 0.8 cm 0.6 - 1.0 / 0.6 - 0.9 cm IVS Systolic Thickness 1.2 cm LVPW Diastolic Thickness 1.1 cm 0.6 - 1.0 / 0.6 - 0.9 cm LVPW Systolic Thickness 1.4 cm LVOT Diameter 2.1 cm LV Ejection Fraction 2D Teich 80.2 % LV Ejection Fraction MOD 2C 73.7 % LV Ejection Fraction 2C AL 73.2 % LA Diameter 3.2 cm LA Width 3.5 cm LA Height 5.0 cm RA Width 4.1 cm RA Height 4.7 cm Aorta at Sinotubular Diameter 2.9 cm M-MODE LV Diastolic Diameter MM 5.2 cm 4.2 - 5.9 / 3.9 - 5.3 cm LV Systolic Diameter MM 2.9 cm LV Ejection Fraction MM Teich 74.8 % IVS Diastolic Thickness MM 1.2 cm 0.6 - 1.0 / 0.6 - 0.9 cm IVS Systolic Thickness MM 1.3 cm LVPW Diastolic Thickness MM 1.2 cm 0.6 - 1.0 / 0.6 - 0.9 cm LVPW Systolic Thickness MM 1.8 cm RV Diastolic Diameter MM 1.3 cm Aortic Annulus Diameter 3.6 cm LA Ao Ratio MM 1.0 MV E Point Septal Separation 1.0 cm DOPPLER AV Peak Velocity 143.0 cm/s LVOT Peak Velocity 108.0 cm/s AV Area Cont Eq vti 2.7 cm squared AV Area Cont Eq pk 2.6 cm squared MV Area PHT 3.5 cm squared Mitral E to A Ratio 0.9 MV E' Velocity 39.0 cm/s Mitral E to MV E' Ratio 5.1 Mitral E to LV E' Lateral Ratio 4.9 Mitral E to LV E' Septal Ratio 5.4 TR Peak Velocity 263.0 cm/s TR Peak Gradient 27.7 mmHg TV Peak E Velocity 104.0 cm/s Right Atrial Pressure 3.0 mmHg Pulmonary Artery Systolic Pressu 30.7 mmHg PV Peak Velocity 121.0 cm/s FINDINGS Left Ventricle Normal left ventricular size, systolic function and wall thickness, with no regional wall motion abnormalities. Left ventricular ejection fraction is estimated at 65 %. Normal diastolic function. Right Ventricle Normal right ventricular size and systolic function. Right ventricular systolic pressure 30.7 mmHg. Right Atrium Normal right atrial size. Right atrial pressure estimated at 3 mm Hg. Left Atrium Normal left atrial size. Mitral Valve Structurally normal mitral valve. No mitral valve stenosis. Trace mitral valve regurgitation. Aortic Valve Structurally normal trileaflet aortic valve. No aortic valve stenosis. No aortic valve regurgitation. Tricuspid Valve Structurally normal tricuspid valve. No tricuspid valve stenosis. Trace tricuspid valve regurgitation. Pulmonic Valve Structurally normal pulmonic valve. No pulmonary valve stenosis. Trace pulmonary valve regurgitation. Pericardium No pericardial effusion. Normal sized inferior vena cava. Aorta Normal size aortic root and proximal ascending aorta. CONCLUSIONS 1. Normal left ventricular size, systolic function and wall thickness, with no regional wall motion abnormalities. Left ventricular ejection fraction is estimated at 65 %. Normal diastolic function. 2. Normal right ventricular size and systolic function. 3. No significant valvular abnormality. 4. No pericardial effusion. 5 No prior similar studies to compare. Anne Marie Gr MD (Electronically Signed) Final Date: 03 May 2020 22:45 S EKG Data^: EKG 1: Attestation: I personally reviewed and interpreted this EKG as follows: EKG interpretation date: 05/03/20 EKG interpretation time: 20:55 Interpretation: Normal sinus rhythm at 89 beats a minute, no blocks, normal intervals, no acute ST or T wave changes. Discharge Plan Discharge Patient Disposition: Xfer Short-Term Hosp Clinical Impression: Perforation of esophagus, Chest pain Prescriptions: No Action Tylenol Extra Strength 500 mg Tablet 1,000 mg PO PRN RF: 0 Mqjqwaevt-Rznlcczityjfv-Wcqs 2 tab PO PRN RF: 0 Referrals: Israel Walsh MD [Primary Care Provider] - Coding Level of Care Code ED Tactical/Mobile Watch Officer for Chg Fwd Exam Comprehensive
[2020-05-03 21:14] LABS: Basophils # 0.1 10^3/uL (0.0-0.1); Basophils % 0.3 %; Eosinophils # 0.1 10^3/uL (0.0-0.8); Eosinophils % 0.7 %; Hematocrit 44.5 % (42.0-52.0); Hemoglobin 14.9 g/dL (11.7-16.6); Lymphocytes # 4.7 10^3/uL (0.8-4.8); Lymphocytes % 22.5 %; Mean Corpuscular HGB Conc 33.5 g/dL (30.0-36.0); Mean Corpuscular Hemoglobin 29.3 pg (28.0-34.0); Mean Corpuscular Volume 87.6 fL (80-94); Mean Platelet Volume 9.8 fL (7.4-10.4); Monocytes # 1.9 10^3/uL (0.2-0.9); Monocytes % 8.8 %; Neutrophils % 67.3 %; Nucleated Red Blood Cells % 0 %; Platelet Count 259 10^3/cmm (130-400); Red Blood Count 5.08 10^6/uL (4.1-5.3); Red Cell Distribution Width 12.7 % (12.1-15.1); White Blood Count 21.1 10^3/uL (4.0-10.0)
[2020-05-03 21:30] LABS: D Dimer 1.02 ug/mIFEU (0-0.59)
[2020-05-03 21:31] LABS: Lactic Sepsis W/Reflex 1.3 mmol/L (0.5-2.2)
[2020-05-03 21:33] LABS: Alanine Aminotransferase 38 U/L (0-41); Alkaline Phosphatase 117 IU/L (40-130); Anion Gap 13.6 (5-19); Aspartate Amino Transferase 20 U/L (0-40); Blood Urea Nitrogen 12 mg/dL (6-20); Calcium 9.5 mg/dL (8.5-10.5); Carbon Dioxide 25 mmol/L (22-29); Chloride 102 mmol/L (98-107); Globulin 2.7 g/dL (1.3-4.6); Glomerular Filtration Rate 104.1 mL/min (90-130); Glucose 135 mg/dL (65-115); Magnesium 1.9 mg/dL (1.7-2.3); Osmolality Calculated 286 mOsm/kg (285-295); Potassium 3.6 mmol/L (3.5-5.1); Sodium 137 mmol/L (136-145); Total Bilirubin 0.5 mg/dL (0.15-1.2); Total Protein 6.7 g/dL (6.6-8.7)
[2020-05-03 21:34] LABS: Troponin(5th) Baseline 6 ng/L (0-15)
--- NOTE | 2020-05-03 21:34 | CTR_ITS ---
PROCEDURE INFORMATION: Exam: CT Angiography Chest With Contrast Exam date and time: 05/03/2020 9:40 PM Age: 45 years old Clinical indication: Other: Elevatedd wbc. ; Other: Hypertensive; Patient HX: Left sided chest pain with hypertension and positive ddimer. Elevated wbc. Angio phase repeated twice. Best exam submitted. TECHNIQUE: Imaging protocol: Computed tomographic angiography of the chest with intravenous contrast. 3D rendering (Not supervised by radiologist): MIP and/or 3D reconstructed images were created by the technologist. Radiation optimization: All CT scans at this facility use at least one of these dose optimization techniques: automated exposure control; mA and/or kV adjustment per patient size (includes targeted exams where dose is matched to clinical indication); or iterative reconstruction. Contrast material: OMNI 350; Contrast volume: 215 ml; Contrast route: INTRAVENOUS (IV); COMPARISON: CR XR chest 1V portable [id number] 05/03/2020 9:05 PM RADIATION DOSE METRICS: Total DLP (mGy-cm): 3372.87 FINDINGS: The visualized bony structures are unremarkable. Nodular infiltrate is seen within the right upper lobe. Findings may represent pneumonia. The remainder of the lungs are clear. There is no pleural effusion. There is no pneumothorax. There are no suspicious pulmonary nodules. The central airways are normal in caliber. The thyroid gland is unremarkable. There is no axillary adenopathy. Prominent mediastinal and right hilar lymph nodes are present which may be reactive. Interrogation of the pulmonary arteries in multiple planes shows no evidence for pulmonary embolism. The aorta is normal in caliber with no evidence for aneurysm or dissection. The heart is normal in size. There is no evidence for right heart failure. There is thickening of the wall of the distal esophagus which may be due to reflux or esophagitis. IMPRESSION: 1. No evidence for pulmonary embolism. 2. Nodular infiltrate within the right upper lobe likely representing pneumonia. The findings are nonspecific. 3. Prominent mediastinal and right hilar lymph nodes which may be reactive. 4. Thickening of the wall of the distal esophagus which may be due to reflux or esophagitis. PROCEDURE INFORMATION: Exam: CT Abdomen And Pelvis With Contrast Exam date and time: 05/03/2020 9:40 PM Age: 45 years old Clinical indication: Other: Elevatedd wbc. ; Other: Hypertensive; Patient HX: Left sided chest pain with hypertension and positive ddimer. Elevated wbc. Angio phase repeated twice. Best exam submitted. TECHNIQUE: Imaging protocol: Computed tomography of the abdomen and pelvis with intravenous contrast. Radiation optimization: All CT scans at this facility use at least one of these dose optimization techniques: automated exposure control; mA and/or kV adjustment per patient size (includes targeted exams where dose is matched to clinical indication); or iterative reconstruction. Contrast material: OMNI 350; Contrast volume: 215 ml; Contrast route: INTRAVENOUS (IV); COMPARISON: CR XR chest 1V portable [id number] 05/03/2020 9:05 PM RADIATION DOSE METRICS: Total DLP (mGy-cm): 3372.87 FINDINGS: The The visualized bony structures are unremarkable. There is no liver mass. There is no intrahepatic biliary dilatation. No gallstones are seen within the gallbladder. The pancreas is unremarkable. The spleen is unremarkable. There is no adrenal mass. There is no hydronephrosis. There are no renal calculi. There is no perinephric stranding. There is no renal mass. The aorta is normal in caliber. The IVC is normal in caliber. There is no retroperitoneal adenopathy. There is no mesenteric adenopathy. The stomach is unremarkable. There is some mild distal small bowel distention with fluid which may represent mild ileus. No transition zone is seen. There is no evidence for small bowel obstruction. The colonic structures within the upper abdomen are normal in caliber with no bowel wall thickening. Within the pelvis: A normal appendix is seen within the right lower quadrant. The bladder is unremarkable. The prostate gland and seminal vesicles are normal. There is no free fluid within the pelvis. There is no inguinal adenopathy. There is no pelvic adenopathy. The bowel loops within the pelvis are unremarkable. CT/CT angio chest w abd pel w con IMPRESSION: 1. Some mild distal small bowel distention with fluid which may represent mild ileus. No evidence for bowel obstruction. 2. Normal appendix. Radiation Dose CTDIVOL = (mGy): DLP = 3372.87~3372.87 (mGy-cm)
[2020-05-03] MEDS: ondansetron 2 mg/ML SDV 2 mL 4 MG IVP (21:50)
[2020-05-03] MEDS: morphine 4 mg/mL SDV 1 mL IVP (21:50)
[2020-05-03] MEDS: sodium chloride 0.9% 1,000 ML 100 ML IV (22:02)
[2020-05-03 22:05] LABS: HIV 1 & 2 Antibody Non-Reactive (Non-Reactiv); HIV 1 & 2 Antigen Non-Reactive (Non-Reactiv)
[2020-05-03 22:13] LABS: Hepatitis A Antibody IgM Non-Reactive (Nonreactive); Hepatitis B Core AB, Total Non-Reactive (Nonreactive); Hepatitis B Surface AB 3.8 (0-8.5); Hepatitis B Surface Antigen Non-Reactive (Nonreactive); Hepatitis C Virus Antibody Reactive (Nonreactive)
[2020-05-03] MEDS: iohexol 350 mg/mL 100 mL Btl IV ×3 (22:13→22:35)
--- NOTE | 2020-05-03 22:57 | ECG_ITS ---
[facility] Test Date: 2020-05-03 Pat Name: Nicki Jiménez Department: Room: Gender: Male Director Surgical: : 1975 Requested By: Erin Chandra Order Number: [id number] Ana Maria MD: Anne Marie Gr M.D. Measurements Intervals [place] Rate: 81 P: 64 VA: 116 QRS: 60 QRSD: 98 T: 64 QT: 382 QTc: 445 Interpretive Statements SINUS RHYTHM WITH SHORT VA INTERVAL Compared to ECG 05/03/2020 20:55:11 No significant changes Electronically Signed On 05-04-2020 8:45:30 [employer] by Anne Marie Gr M.D. [id number]
[2020-05-03 23:06] LABS: Add Urine Culture? No; Bacteria Urine TRACE /hpf; Bilirubin Urine Neg (Negative); Blood Urine Neg (Negative); Glucose Urine UA Norm (Normal); Ketones Urine Negative (Negative); Leukocyte Esterase Urine Negative (Negative); Nitrate Urine Negative (Negative); Protein Urine Trace (Negative); RBC Urine 0-4 /hpf (0-2); Squamous Epithelial Cell Urine 0-4 /hpf (0-5); Urine Appearance Clear (CLEAR); Urine Color Yellow (Yellow); Urobilinogen Urine Norm (Negative); WBC Urine 0-4 /hpf (0-5); pH Urine 6.5 (5-7)
[2020-05-03] MEDS: levoFLOXacin 750 mg Tablet PO (23:33)
[2020-05-04] VITALS: BP 135/83; PULSE 79; RESP 14; O2SAT 95
[2020-05-04] LABS: Troponin 5 2HR Delta 0 ABS# (0-10)
[2020-05-04] MEDS: famotidine 20 mg/2 mL INJ 40 MG IVP (00:17)
[2020-05-04] MEDS: ciprofloxacin 400 MG/200 ML PREMIX 200 MG IV (00:21)
[2020-05-04] MEDS: metroNIDAZOLE IV 500 MG/100 ML PREMIX 100 MG IV (00:21)
[2020-05-04 00:30] VITALS: BP 135/83; PULSE 102; RESP 18; O2SAT 96
[2020-05-04 01:00] VITALS: BP 136/83; PULSE 79; RESP 17; O2SAT 97
[2020-05-04] MEDS: pantoprazole 40 mg SDV 80 MG IVP (01:32)
[2020-05-04] MEDS: pantoprazole 40 MG in sodium chloride 0.9% (plus) 100 ML 20 MG IV (01:32)
[2020-05-04 02:00] VITALS: BP 122/71; PULSE 72; RESP 21; O2SAT 95
[2020-05-04 02:00] LABS: SARS Covid-2 Antigen Negative (Negative)
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
[2020-05-04 03:00] VITALS: BP 125/67; PULSE 77; RESP 20; O2SAT 97
[2020-05-04 03:40] VITALS: BP 115/84; PULSE 74; RESP 18; O2SAT 95
== END 2020-05-04 03:23 | disposition short-term general hospital (02) ==
PROVIDERS: Emergency Provider Emergency Medicine; PCP Family Medicine
DX: K22.3 Perforation of esophagus (principal); R07.9 Chest pain, unspecified; F17.210 Nicotine dependence, cigarettes, uncomplicated
CPT/HCPCS: 12345; 71045; 71275; 74177; 80053; 81001; 83605; 83735; 84484; 85025; 85378; 86705; 86706; 86709; 86803; 87040; 87340; 87426; 87806; 93005; 93306; 96365; 96366; 96367; 96375; 99283; 99285; C9113; J0744; J2270; J2405; J3490; J7030; Q9967; S0030

== ENCOUNTER → 2020-12-21 12:46 | Outpatient (BNVA) | payer OTHER, SELFPAY | PROVIDERS: PCP Family Medicine; Visit Provider Nurse Practitioner Family | DX: Z20.822 Contact with and (suspected) exposure to COVID-19 (principal) | CPT/HCPCS: 87635 ==

== ENCOUNTER → 2023-06-04 10:07 | Outpatient (BNVA) | payer MEDICAID, SELFPAY | PROVIDERS: PCP Family Medicine; Visit Provider Family Medicine | DX: K75.9 Inflammatory liver disease, unspecified (principal); F17.200 Nicotine dependence, unspecified, uncomplicated; L05.01 Pilonidal cyst with abscess | CPT/HCPCS: 80053; 80061; 84439; 84443; 85025; 86705; 86706; 86709; 86803; 87340; 87522 ==

== ENCOUNTER → 2023-06-11 10:28 | Outpatient (BNVA) | payer MEDICAID, SELFPAY | PROVIDERS: PCP Family Medicine; Visit Provider Family Medicine | DX: B19.20 Unspecified viral hepatitis C without hepatic coma (principal) | CPT/HCPCS: 85610; 87806; 87902 ==

== ENCOUNTER → 2023-06-15 07:38 | Outpatient (BNVA) | payer MEDICAID, SELFPAY | PROVIDERS: PCP Family Medicine; Referring Provider Family Medicine; Visit Provider Surgery | DX: L05.01 Pilonidal cyst with abscess (principal) | CPT/HCPCS: 99204 ==

== ENCOUNTER 2023-06-23 06:04 | Outpatient (CLI) | payer MEDICAID, SELFPAY ==
--- NOTE | 2023-06-23 06:15 | US_ITS ---
WS: [id number] ABDOMINAL ULTRASOUND LIMITED REASON FOR VISIT: hep c, mild transaminitis, r/o cirrhosis TECHNIQUE: Grayscale and Doppler ultrasound examination of the abdomen. FINDINGS: Pancreas: Not well visualized however no mass, ductal dilatation, or calcification is seen. Abdominal aorta and IVC: Normal caliber. Liver: Liver measures 20.5 cm in length. Echogenic without focal lesion. Normal portal venous blood f low. Gallbladder: Gallbladder wall thickness measures 0.2 mm. No gallbladder calculi. Right kidney: Right kidney measures 11.7 cm x 5.2 cm x 5.3 cm. Right kidney cortex measures 1.3 cm. N o hydronephrosis, calculus, or mass. No ascites. IMPRESSION: The enlarged liver with echogenicity is nonspecific and can be seen with fatty infiltration or active inflammation.
== END 2023-06-23 06:05 | disposition home or self-care (01) ==
PROVIDERS: PCP Family Medicine; Visit Provider Family Medicine
DX: B19.20 Unspecified viral hepatitis C without hepatic coma (principal)
CPT/HCPCS: 76705

== ENCOUNTER 2023-06-29 05:42 | Day surgery (SDC) | payer MEDICAID, SELFPAY ==
[2023-06-29] VITALS (10 sets, daily range): BP systolic 144–170; BP diastolic 85–98; PULSE 79–92; RESP 15–21; TEMP 36.4–36.6; O2SAT 93–100; BMI 36.6
[2023-06-29] MEDS: sodium chloride 0.9% 1,000 ML 30 ML IV (06:25)
--- NOTE | 2023-06-29 06:31 | W.PM.OPSUD ---
Surgery/Procedure H&P Update DATE OF PROCEDURE: June 29, 2023 DATE H&P PERFORMED: 06/15/23 H&P UPDATE INFORMATION: I have reviewed H&P completed within last 30 days, I have examined patient prior to procedure and No changes to prior documentation PLANNED PROCEDURE: Operation Date: 06/29/23 07:00 Proposed Procedures p Pilonidal Cystectomy 69471 L05.01(Not Applicable) - Ruben Lundberg, DO
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
[2023-06-29] MEDS: vancomycin 1,500 MG/300 ML PIGGYBACK 200 MG IV (06:53)
[2023-06-29] MEDS: lidocaine-epi 1% 20 mL INJ INJECTION (07:21)
--- NOTE | 2023-06-29 07:59 | PM.OP ---
Operative Report Date of procedure: June 29, 2023 Pre-op diagnosis: Pilonidal cyst Post-op diagnosis: same Procedure done: Excision of pilonidal cyst Implants: Siobhan Specimens removed/disposition: Excision of pilonidal cyst Surgeon: Ruben Lundberg DO Anesthesia: General and Local Estimated blood loss (mL): 5 Complications: None apparent Brief History: This very pleasant 48-year-old gentleman presented to my office with a several year history of pilonidal cyst. He desired excision. The risk benefits were explained and documented. Procedure: The area was inspected prepped and draped in the usual sterile fashion. A timeout was performed. All present were in agreement. 2% lidocaine with epinephrine was used to anesthetize the area around the pilonidal cyst. A 10 cm elliptical excision was performed down to the sacrum. The anal sphincter was avoided. Specimen was removed en bloc and sent to pathology. Bovie cautery was used for hemostasis. 0 Vicryl was then used in interrupted fashion to approximate the fascia. Siobhan was placed down into the wound. 2-0 Vicryl was then used in interrupted fashion to approximate the dermis. 3-0 nylon was used to close the skin in a vertical mattress interrupted fashion. Hemostasis was noted. Bacitracin and sterile dressing was applied. Patient tolerated the procedure well.
[2023-06-29] MEDS: HYDROcodone-acetaminophen 7.5-325 mg Tablet 1 TAB PO (09:14)
--- NOTE | 2023-06-29 15:48 | ANE.PACU2 ---
Inpatient post-anesthesia follow up: Airway intact: Yes Vital signs: Temperature 97.6 F Pulse Rate 84 Respiratory Rate 18 Blood Pressure 144/89 Pulse Oximetry 94 Oxygen Delivery Me thod Room Air Oxygen Flow Rate 6 Fraction of Inspir ed Oxygen Hydration adequate: Yes Nausea and vomiting: No Pain level: 3 Mental status: Baseline
== END 2023-06-29 10:05 | disposition home or self-care (01) ==
PROVIDERS: PCP Family Medicine; Visit Provider Surgery
PROC: (CPT 11770; principal; 2023-06-29 07:00)
DX: L05.91 Pilonidal cyst without abscess (principal); F17.200 Nicotine dependence, unspecified, uncomplicated; J44.9 Chronic obstructive pulmonary disease, unspecified; Z86.19 Personal history of other infectious and parasitic diseases; K21.9 Gastro-esophageal reflux disease without esophagitis; E66.01 Morbid (severe) obesity due to excess calories; Z68.36 Body mass index [BMI] 36.0-36.9, adult
CPT/HCPCS: 11770; 88304; J2704; J3010; J3370; J3490; J3535; J7030

== ENCOUNTER → 2023-07-06 08:11 | Outpatient (BNVA) | payer MEDICAID, SELFPAY | PROVIDERS: PCP Family Medicine; Referring Provider Family Medicine; Visit Provider Student in an Organized Health Care Education/Training Program | DX: G56.03 Carpal tunnel syndrome, bilateral upper limbs (principal) | CPT/HCPCS: 73130; 99204 ==

== ENCOUNTER → 2023-07-19 08:19 | Outpatient (BNVA) | payer MEDICARE, MEDICAID, SELFPAY | PROVIDERS: PCP Family Medicine; Visit Provider Surgery | DX: Z98.890 Other specified postprocedural states (principal) | CPT/HCPCS: 99024 ==

== ENCOUNTER → 2023-07-28 09:46 | Outpatient (BNVA) | payer MEDICAID, SELFPAY | PROVIDERS: PCP Family Medicine; Visit Provider Family Medicine | DX: B19.20 Unspecified viral hepatitis C without hepatic coma (principal) | CPT/HCPCS: 87522 ==

== ENCOUNTER → 2023-07-29 12:05 | Outpatient (BNVA) | payer MEDICAID, SELFPAY | PROVIDERS: PCP Family Medicine; Referring Provider Student in an Organized Health Care Education/Training Program; Visit Provider Specialist | DX: G56.03 Carpal tunnel syndrome, bilateral upper limbs (principal) | CPT/HCPCS: 95911 ==

== ENCOUNTER → 2023-12-13 14:57 | Outpatient (BNVA) | payer MEDICAID, SELFPAY | PROVIDERS: PCP Family Medicine; Visit Provider Family Medicine | DX: B19.20 Unspecified viral hepatitis C without hepatic coma (principal) | CPT/HCPCS: 87522 ==

== ENCOUNTER 2023-12-22 12:24 | Day surgery (SDC) | payer MEDICAID, SELFPAY ==
[2023-12-22] VITALS (9 sets, daily range): BP systolic 98–148; BP diastolic 73–93; PULSE 70–81; RESP 14–20; TEMP 36.2–36.4; O2SAT 92–96; BMI 36.3
[2023-12-22] MEDS: sodium chloride 0.9% 1,000 ML 30 ML IV (12:40)
[2023-12-22] MEDS: acetaminophen 1,000 MG/100 ML PIGGYBACK 400 MG IV (12:43)
[2023-12-22] MEDS: ketorolac 30 mg/mL INJ IVP (12:43)
[2023-12-22] MEDS: scopolamine 1.5 Patch 1 PATCH TRANSDERMA (12:47)
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
[2023-12-22 13:39] LABS: Anion Gap 14.5 (5-19); Blood Urea Nitrogen 14 mg/dL (6-20); Calcium 8.7 mg/dL (8.5-10.5); Carbon Dioxide 25 mmol/L (22-29); Chloride 104 mmol/L (98-107); Creatinine Clr Calc Pharmacy 159.0396; Glomerular Filtration Rate 102.7 mL/min (90-130); Glucose 102 mg/dL (65-115); Osmolality Calculated 289 mOsm/kg (285-295); Potassium 4.5 mmol/L (3.5-5.1); Sodium 139 mmol/L (136-145)
[2023-12-22] MEDS: ceFAZolin 2,000 MG in sodium chloride 0.9% (plus) 50 ML 100 MG IV (14:42)
[2023-12-22] MEDS: ROPivacaine 0.5% SDV 30 mL 150 MG INJECTION (14:58)
[2023-12-22] MEDS: lidocaine-epi 1% 20 mL INJ INJECTION (14:58)
[2023-12-22] MEDS: ceFAZolin 1,000 mg SDV 1000 MG IVP (15:09)
--- NOTE | 2023-12-22 15:40 | P.BOP_ITS ---
Date of Procedure: [12/22/2023] Surgeon: Mike Fritz DO [employer] Supervisor(s): None Procedure(s) performed: Right carpal tunnel release Findings of the procedure(s): Right carpal tunnel syndrome patient underwent procedure as planned without issues or complications Estimated blood loss: 2mL Specimen(s) removed: None Post-operative diagnosis: Right carpal tunnel syndrome
--- NOTE | 2023-12-22 15:40 | PM.OP ---
Operative Report Date of procedure: December 22, 2023 Surgeon: Mike Fritz DO Procedure: Preop Diagnosis: Right Carpal Tunnel Syndrome Post-op diagnosis: Same Procedure done: 1. Right carpal tunnel release Surgeon: Mike Fritz DO Anesthesia: MAC (Local) Estimated blood loss: 2 mL Tourniquet time [ 11]minutes IV fluids: See anesthesia record Complications: None Findings: See operative report narrative Condition: stable Disposition: same day Brief History: Patient is a pleasant [ 48 ]year-old [M ] with right carpal tunnel syndrome. Patient has been worked up in the outpatient setting findings and physical examination consistent with this. Patient nerve conduction studies consistent with carpal tunnel syndrome. We detailed out patient's risk benefits complication alternatives with surgical and nonsurgical treatment options. Through shared decision making, patient agrees to proceed with surgical intervention of the right carpal tunnel release . Patient understands and agrees with current plan. All questions answered. Patient elects to proceed with surgical intervention with carpal tunnel release. Procedure: Patient seen and evaluated in the preoperative holding area. Consent was reviewed and signed with patient. Correct extremity was marked. Patient was seen evaluated by the anesthesia department once cleared for surgery was brought back to the operative suite. Patient was kept on [facility] in supine position all bony prominences were well-padded patient properly secured to the bed. Right upper extremity was then placed onto an armboard. A nonsterile tourniquet was applied to the RIght upper arm. Patient underwent anesthesia per the anesthesia department. Patient's Right upper extremity was then prepped and draped in standard orthopedic fashion. Final timeout performed. Patient received appropriate preoperative antibiotics. Under sterile aseptic technique patient received local anesthesia over the preplanned carpal tunnel incision site. Esmarch was used to exsanguinate the Right upper extremity and tourniquet was insufflated to 250 mmHg. A standard mini open Right carpal tunnel incision was made. Starting distally at Hwang's cardinal line in line with the fourth ray extending proximally distal to the wrist crease centered over the carpal tunnel. Sharp scalpel incision was made through skin and subcutaneous tissue. Self-retaining retractor was placed and the palmar fascia was identified. This was then split longitudinally and direct visualization of the transverse carpal ligament was then made. I then utilizing scalpel feathered through the transverse carpal ligament until I entered the floor of the transverse carpal tunnel ligament into the carpal tunnel. Next I switched to dissection scissors and completed my release of the transverse carpal ligament distally with care to protect the recurrent motor branch. I completely released into the palmar fat and until no entrapment was noted distally. Care was made to protect the superficial palmar arch during my distal dissection. Next I utilized a nasal speculum placed on top of the transverse carpal ligament and utilize this to retract the subcutaneous fat and tissue and under direct loupe magnification was able to identify the transverse carpal ligament. Next I then protected the contents of the carpal tunnel and subsequently utilizing dissection scissors under loupe magnification completely released the transverse carpal ligament proximally into the antebrachial fascia. Care was made to protect the palmar cutaneous branch by keeping my scissors curved ulnarly. Once completely released, I then placed my Grant and had appropriate decompression of the carpal tunnel proximally as well as distally. I then inspected the contents of the carpal tunnel which showed an hourglass shape of the median nerve showing its compression. No masses were noted. Tendons appeared healthy. Wound was then thoroughly irrigated. Tourniquet deflated. Hemostasis satisfactory with bipolar electrocautery. I then closed the incision with interrupted nylon stitches. Xeroform 4 x 4's and a bulky soft dressing was applied. Patient was then awakened from anesthesia and taken to PACU in stable condition. Patient tolerated procedure without complications. Disposition: Patient taken to PACU in stable condition recovering well. Dressing clean dry and intact. Patient will receive appropriate discharge instructions as well as pain medication postoperatively. Patient to follow-up with me in the office in 2 weeks. They understand they may be weightbearing as tolerated to the right hand. Patient should keep incision clean dry and intact. Patient understands if any questions or concerns may contact the office.?
--- NOTE | 2023-12-22 16:35 | ANE.PACU2 ---
Inpatient post-anesthesia follow up: Airway intact: Yes Vital signs: Temperature 97.6 F Pulse Rate 74 Respiratory Rate 18 Blood Pressure 137/91 Pulse Oximetry 93 Oxygen Delivery Me thod Room Air Oxygen Flow Rate 8 Fraction of Inspir ed Oxygen Hydration adequate: Yes Nausea and vomiting: No Pain level: 1 Mental status: Baseline
== END 2023-12-22 16:34 | disposition home or self-care (01) ==
PROVIDERS: Anesthesiology; PCP Family Medicine; Visit Provider Student in an Organized Health Care Education/Training Program
PROC: (CPT 64721; principal; 2023-12-22 13:35)
DX: G56.01 Carpal tunnel syndrome, right upper limb (principal); I10 Essential (primary) hypertension; E66.01 Morbid (severe) obesity due to excess calories; Z68.36 Body mass index [BMI] 36.0-36.9, adult; K21.9 Gastro-esophageal reflux disease without esophagitis; F17.200 Nicotine dependence, unspecified, uncomplicated
CPT/HCPCS: 64721; 80048; J0131; J0690; J1885; J2250; J2704; J2795; J3010; J7030

== ENCOUNTER → 2024-01-06 08:01 | Outpatient (BNVA) | payer MEDICAID, SELFPAY | PROVIDERS: PCP Family Medicine; Visit Provider Physician Assistant | DX: Z98.890 Other specified postprocedural states (principal) | CPT/HCPCS: 99024 ==

== ENCOUNTER → 2024-02-03 10:41 | Outpatient (BNVA) | payer MEDICAID, SELFPAY | PROVIDERS: PCP Family Medicine; Visit Provider Student in an Organized Health Care Education/Training Program | DX: G56.03 Carpal tunnel syndrome, bilateral upper limbs (principal) | CPT/HCPCS: 99214 ==

== ENCOUNTER 2024-03-23 06:04 | Day surgery (SDC) | payer MEDICAID, SELFPAY ==
[2024-03-23] VITALS (7 sets, daily range): BP systolic 123–134; BP diastolic 76–93; PULSE 82–94; RESP 16–18; TEMP 36.1–36.3; O2SAT 93–95
[2024-03-23] MEDS: sodium chloride 0.9% 1,000 ML 30 ML IV (06:34)
[2024-03-23] MEDS: ketorolac 30 mg/mL INJ IVP (06:35)
[2024-03-23] MEDS: acetaminophen 1,000 MG/100 ML PIGGYBACK 400 MG IV (06:40)
[2024-03-23] MEDS: scopolamine 1.5 Patch 1 PATCH TRANSDERMA (06:40)
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
[2024-03-23] MEDS: clindamycin 900 MG/50 ML PREMIX 100 MG IV (08:00)
[2024-03-23] MEDS: ROPivacaine 0.5% SDV 30 mL 30 MG INJECTION (08:20)
[2024-03-23] MEDS: lidocaine-epi 1% 20 mL INJ 5 ML INJECTION (08:20)
--- NOTE | 2024-03-23 08:34 | P.BOP_ITS ---
Date of Procedure: 03/23/2024 Surgeon: Mike Fritz DO Manager Technical Sales(s): None Procedure(s) performed: Left carpal tunnel release Findings of the procedure(s): Patient found to have left carpal tunnel syndrome underwent procedure as planned without issues or complications Estimated blood loss: 2 mL Specimen(s) removed: None Post-operative diagnosis: Left carpal tunnel syndrome
--- NOTE | 2024-03-23 08:35 | P.OP_ITS ---
Operative Report Date of procedure: March 23, 2024 Surgeon: Mike Fritz DO Procedure: Preop Diagnosis: Left Carpal Tunnel Syndrome Post-op diagnosis: Same Procedure done: 1. Left carpal tunnel release Surgeon: Mike Fritz DO Anesthesia: MAC (Local) Estimated blood loss: 2 mL Tourniquet time 10 minutes IV fluids: See anesthesia record Complications: None Findings: See operative report narrative Condition: stable Disposition: same day Brief History: Patient is a pleasant 49 year-old Male with left carpal tunnel syndrome. Patient has been worked up in the outpatient setting findings and physical examination consistent with this. Patient nerve conduction studies consistent with carpal tunnel syndrome. We detailed out patient's risk benefits complication alternatives with surgical and nonsurgical treatment options. Through shared decision making, patient agrees to proceed with surgical intervention of the left carpal tunnel release . Patient understands and agrees with current plan. All questions answered. Patient elects to proceed with surgical intervention with carpal tunnel release. Procedure: Patient seen and evaluated in the preoperative holding area. Consent was reviewed and signed with patient. Correct extremity was marked. Patient was seen evaluated by the anesthesia department once cleared for surgery was brought back to the operative suite. [facility] all bony prominences were well-padded patient properly secured to the bed. Left upper extremity was then placed onto an armboard. A nonsterile tourniquet was applied to the left upper arm. Patient underwent anesthesia per the anesthesia department. Patient's left upper extremity was then prepped and draped in standard orthopedic fashion. Final timeout performed. Patient received appropriate preoperative antibiotics. Under sterile aseptic technique patient received local anesthesia over the preplanned carpal tunnel incision site. Esmarch was used to exsanguinate the left upper extremity and tourniquet was insufflated to 250 mmHg. A standard mini open left carpal tunnel incision was made. Starting distally at Hwang's cardinal line in line with the fourth ray extending proximally distal to the wrist crease centered over the carpal tunnel. Sharp scalpel incision was made through skin and subcutaneous tissue. Self-retaining retractor was placed and the palmar fascia was identified. This was then split longitudinally and direct visualization of the transverse carpal ligament was then made. I then utilizing scalpel feathered through the transverse carpal ligament until I entered the floor of the transverse carpal tunnel ligament into the carpal tunnel. Next I switched to dissection scissors and completed my release of the transverse carpal ligament distally with care to protect the recurrent motor branch. I completely released into the palmar fat and until no entrapment was noted distally. Care was made to protect the superficial palmar arch during my distal dissection. Next, nasal speculum placed proximally for retraction of soft tissue on top of the Transverse carpal ligament. Next the contents of the carpal tunnel where protected and and subsequently utilizing dissection scissors under loupe magnification completely released the transverse carpal ligament proximally into the antebrachial fascia. Care was made to protect the palmar cutaneous branch by keeping my scissors curved ulnarly. Once completely released, I then placed my Phelan and had appropriate decompression of the carpal tunnel proximally as well as distally. I then inspected the contents of the carpal tunnel which showed an hourglass shape of the median nerve showing its compression. No masses were noted. Tendons appeared healthy. Wound was then thoroughly irrig ated. Tourniquet deflated. Hemostasis satisfactory with bipolar electrocautery. I then closed the incision with interrupted nylon stitches. Xeroform 4 x 4's and a bulky soft dressing was applied to the left upper extremity. Patient was then awakened from anesthesia and taken to PACU in stable condition. Patient tolerated procedure without complications. Disposition: Patient taken to PACU in stable condition recovering well. Dressing clean dry and intact. Patient will receive appropriate discharge instructions as well as pain medication postoperatively. Patient to follow-up with me in the office in 2 weeks. They understand they may be weightbearing as tolerated to the left hand. Patient should keep incision clean dry and intact. Patient understands if any questions or concerns may contact the office.
--- NOTE | 2024-03-23 09:30 | ANE.PACU2 ---
Inpatient post-anesthesia follow up: Airway intact: Yes Vital signs: Temperature 97.4 F Pulse Rate 82 Respiratory Rate 16 Blood Pressure 125/86 Pulse Oximetry 93 Oxygen Delivery Me thod Room Air Oxygen Flow Rate Fraction of Inspir ed Oxygen Hydration adequate: Yes Nausea and vomiting: No Pain level: 1 Mental status: Baseline
== END 2024-03-23 09:30 | disposition home or self-care (01) ==
PROVIDERS: PCP Family Medicine; Visit Provider Student in an Organized Health Care Education/Training Program
PROC: (CPT 64721; principal; 2024-03-23 08:20)
DX: G56.02 Carpal tunnel syndrome, left upper limb (principal); I10 Essential (primary) hypertension; Z86.19 Personal history of other infectious and parasitic diseases; E66.9 Obesity, unspecified; Z68.36 Body mass index [BMI] 36.0-36.9, adult; F17.200 Nicotine dependence, unspecified, uncomplicated
CPT/HCPCS: 64721; J0131; J1885; J2250; J2704; J2795; J3010; J3490; J7030

== ENCOUNTER → 2024-04-06 13:59 | Outpatient (BNVA) | payer MEDICAID, SELFPAY | PROVIDERS: PCP Family Medicine; Visit Provider Physician Assistant | DX: Z98.890 Other specified postprocedural states (principal) | CPT/HCPCS: 99024 ==

== ENCOUNTER 2024-05-25 09:29 | Emergency (ER) | payer MEDICAID, SELFPAY ==
[2024-05-25 09:30] VITALS: BP 152/81; PULSE 77; RESP 16; TEMP 36.9; O2SAT 94; BMI 37.2
--- NOTE | 2024-05-25 09:38 | XR_ITS ---
WS: [id number] Portable AP upright chest, 05/25/2024 Clinical Data: chest pain Comparison: Portable chest, 05/03/2020 Findings: No nodules, masses or effusions are seen. The heart is normal. The pulmonary vascularity is not increased. No pneumonia or pneumothorax is seen. There are monitor leads. XR/XR chest 1V portable [id number] Impression: Negative chest.
--- NOTE | 2024-05-25 09:38 | ECG_ITS ---
[facility] Test Date: 2024-05-25 Pat Name: Nicki Jiménez Department: Room: Gender: Male Soil Analyst: : 1975 Requested By: Rayray Ramos Order Number: [id number] Ana Maria MD: Michelle Mustafa M.D. Measurements Intervals [place] Rate: 75 P: 85 WY: 177 QRS: 40 QRSD: 82 T: 66 QT: 392 QTc: 439 Interpretive Statements SINUS RHYTHM Compared to ECG 05/03/2020 23:30:52 Short [place] interval no longer present Electronically Signed On 05-25-2024 18:15:04 [employer] CHIEF ENGINEER by Michelle Mustafa M.D. [email or web address]
[2024-05-25 09:47] LABS: Basophils % 0.4 %; Eosinophils # 0.2 10^3/uL (0.0-0.8); Eosinophils % 1.7 %; Hematocrit 44.2 % (37-53); Lymphocytes # 4.8 10^3/uL (0.8-4.8); Lymphocytes % 49.5 %; Mean Corpuscular HGB Conc 33.7 g/dL (30-55); Mean Corpuscular Hemoglobin 29.9 pg (27-33); Mean Corpuscular Volume 88.8 fl (82-101); Mean Platelet Volume 9.8 fL (7.4-10.4); Monocytes # 0.8 10^3/uL (0.2-0.9); Monocytes % 8.2 %; Neutrophils # 3.84 10^3/uL (1.8-7.7); Neutrophils % 39.9 %; Nucleated Red Blood Cells % 0 %; Platelet Count 199 10^3/cmm (157-399); Red Blood Count 4.98 10^6/uL (3.85-5.65); Red Cell Distribution Width 12.4 % (12.1-15.1); White Blood Count 9.62 10^3/uL (3.29-11.43)
[2024-05-25 09:49] VITALS: BP 152/81; PULSE 80; RESP 17; O2SAT 92
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
--- NOTE | 2024-05-25 09:52 | CT_ITS ---
WS: [id number] CT CHEST ANGIOGRAPHY WITH REFORMATS HISTORY: Chest pain syncope TECHNIQUE: Contiguous axial images are obtained through the chest during arterial injection of intrav enous contrast. Images are reconstructed to evaluate the pulmonary arteries. MIP imaging also reviewe d. All CT scans at [facility] use at least one of these dose optimization techniques: automat ed exposure control; mA and/or kV adjustment per patient size (includes targeted exams where dose is matched to clinical indication); or iterative reconstruction. CONTRAST: Omnipaque 350; 100 mL IV. DLP: 581.62 mGy.cm COMPARISON: 05/03/2020 No pulmonary embolism. Beyond the lobar and segmental branches the opacification becomes limited. Nor mal size pulmonary artery with no RIGHT heart strain. Minimal atherosclerosis aorta. Bilateral hilar lymph nodes. The largest lymph node on the RIGHT measures 13 mm in short axis diameter, similar to . Lungs are well-aerated. No pneumonia. No pneumothorax. Small hiatal hernia. No adrenal mass. Mild hepatic steatosis. RIGHT upper quadrant lymph nodes with t he largest measuring 13 mm similar to the prior study. The entire pancreas and pancreatic head are no t included. CT/CT angio chest PE protcl [id number] IMPRESSION: 1. No pulmonary embolism. 2. Indeterminate but stable hilar lymph nodes. 3. No pneumonia.
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
[2024-05-25 10:04] LABS: Alanine Aminotransferase 19 U/L (0-41); Albumin Level 4.1 g/dL (3.5-5.2); Alkaline Phosphatase 102 U/L (40-130); Aspartate Amino Transferase 15 U/L (0-40); Blood Urea Nitrogen 16 mg/dL (6-20); Carbon Dioxide 23 mmol/L (22-29); Chloride 99 mmol/L (98-107); Creatinine Clr Calc Pharmacy 141.5789; Globulin 2.5 g/dL (1.3-4.6); Glomerular Filtration Rate 89.3 mL/min (90-130); Glucose 114 mg/dL (65-115); Osmolality Calculated 282 mOsm/kg (285-295); Sodium 135 mmol/L (136-145); Total Bilirubin 0.4 mg/dL (0.15-1.2); Total Protein 6.6 g/dL (6.6-8.7)
[2024-05-25 10:07] LABS: Anion Gap 16.8 (5-19); Potassium 3.8 mmol/L (3.5-5.1)
[2024-05-25 10:08] LABS: Troponin(5th) Baseline < 6 ng/L (0-15)
[2024-05-25 10:13] VITALS: BP 112/76; PULSE 84; RESP 18; O2SAT 94
[2024-05-25 10:24] LABS: Bilirubin Urine Negative (Negative); Blood Urine Negative (Negative); Glucose Urine UA Negative (Normal); Ketones Urine Negative (Negative); Leukocyte Esterase Urine Negative (Negative); Nitrate Urine Negative (Negative); Protein Urine Trace (Negative); Specific Gravity, Urine 1.024 (1.005-1.030); Urine Appearance Clear (CLEAR); Urine Color Yellow (Yellow)
[2024-05-25 10:27] LABS: Add Urine Microscopic? YES; Bacteria Urine None Seen /hpf; Hyaline Casts Urine 0-4 /lpf; RBC Urine 0-2 /hpf (0-2); Squamous Epithelial Cell Urine 0-5 /hpf (0-5); WBC Urine 0-5 /hpf (0-5)
[2024-05-25] MEDS: iohexol 350 mg/mL 500 mL Btl (per mL) IV (10:46)
[2024-05-25 12:16] LABS: Troponin 5 2HR Delta 0.00001 ABS# (0-10)
--- NOTE | 2024-05-25 12:45 | ECG_ITS ---
[facility] Test Date: 2024-05-25 Pat Name: Nicki Jiménez Department: Room: Gender: Male Capacity Analyst: : 1975 Requested By: Rayray Ramos Order Number: [id number] Ana Maria MD: Michelle Mustafa M.D. Measurements Intervals [place] Rate: 76 P: 56 CO: 159 QRS: 45 QRSD: 83 T: 61 QT: 378 QTc: 426 Interpretive Statements SINUS RHYTHM Compared to ECG 05/25/2024 09:33:13 No significant changes Electronically Signed On 05-25-2024 18:23:31 [employer]AND[employer] ASSOCIATE by Michelle Mustafa M.D. [email or web address]
[2024-05-25 13:04] VITALS: BP 148/85; PULSE 88; O2SAT 98
== END 2024-05-25 13:05 | disposition home or self-care (01) ==
PROVIDERS: Emergency Provider Family Medicine; PCP Family Medicine
DX: R55 Syncope and collapse (principal); R07.89 Other chest pain
CPT/HCPCS: 36415; 70450; 71045; 71275; 72125; 80053; 81001; 84484; 85025; 93005; 99285

== ENCOUNTER → 2024-10-16 08:53 | Outpatient (BNVA) | payer MEDICAID, SELFPAY | PROVIDERS: PCP Family Medicine; Visit Provider Student in an Organized Health Care Education/Training Program | DX: Z12.11 Encounter for screening for malignant neoplasm of colon (principal) | CPT/HCPCS: 99024; 99204 ==

== ENCOUNTER 2024-11-07 09:25 | Day surgery (SDC) | payer MEDICAID, SELFPAY ==
[2024-11-07 09:48] VITALS: BP 126/83; PULSE 82; RESP 18; TEMP 36.7; O2SAT 94; BMI 36.7
[2024-11-07] MEDS: sodium chloride 0.9% 1,000 ML 15 ML IV (09:52)
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
--- NOTE | 2024-11-07 10:56 | W.PM.OPSUD ---
Surgery/Procedure H&P Update DATE OF PROCEDURE: November 07, 2024 DATE H&P PERFORMED: 10/16/24 H&P UPDATE INFORMATION: I have reviewed H&P completed within last 30 days, I have examined patient prior to procedure and No changes to prior documentation PREOP DIAGNOSIS: screening PLANNED PROCEDURE: Operation Date: 11/07/24 11:00 Proposed Procedures p Colonoscopy 61034 G0121, Z12.11(Not Applicable) - Jason Koch MD
--- NOTE | 2024-11-07 11:08 | PC.NURSE ---
Cecum time 1108
[2024-11-07 11:18] VITALS: BP 107/74; PULSE 77; RESP 18; TEMP 36.6; O2SAT 90
[2024-11-07 11:38] VITALS: BP 129/85; PULSE 77; RESP 16; O2SAT 97
--- NOTE | 2024-11-07 11:40 | ANE.PACU2 ---
Inpatient post-anesthesia follow up: Airway intact: Yes Vital signs: Temperature 97.8 F Pulse Rate 77 Respiratory Rate 16 Blood Pressure 129/85 Pulse Oximetry 97 Oxygen Delivery Me thod Room Air Oxygen Flow Rate Fraction of Inspir ed Oxygen Hydration adequate: Yes Nausea and vomiting: No Pain level: 1 Mental status: Baseline
== END 2024-11-07 11:44 | disposition home or self-care (01) ==
PROVIDERS: PCP Family Medicine; Visit Provider Student in an Organized Health Care Education/Training Program
PROC: 0DJD8ZZ Inspection of Lower Intestinal Tract, Via Natural or Artificial Opening Endoscopic (ICD-10-PCS; CPT 45378; principal; 2024-11-07 11:00)
DX: Z12.11 Encounter for screening for malignant neoplasm of colon (principal); K21.9 Gastro-esophageal reflux disease without esophagitis; I10 Essential (primary) hypertension; E78.5 Hyperlipidemia, unspecified; E66.01 Morbid (severe) obesity due to excess calories; Z68.36 Body mass index [BMI] 36.0-36.9, adult; B19.20 Unspecified viral hepatitis C without hepatic coma; F17.210 Nicotine dependence, cigarettes, uncomplicated; Z79.899 Other long term (current) drug therapy; Z79.82 Long term (current) use of aspirin
CPT/HCPCS: 45378; J2704; J7030